=== PATIENT | female | born 1975 | race Caucasian/White ===

== ENCOUNTER 2020-10-27 03:07 | Emergency (ER) | payer MEDICAID ==
[~2020-10-27] VITALS: Ht 162.6 cm; Wt 63.5 kg
--- NOTE | 2020-10-27 03:20 | NUR ---
Patient arrived to the ER via her boyfriends car. Patient is complaining of a large raised, reddened area on the lower right hazel. Patient stated that this started about 3 days ago and only recently got worse to the point of being extremely painful. The area in question is a large raised bump in the medial hazel surrounded by a reddened area that is not raised. The skin on the raised bump is shiny, and does not show any wounds consistent with an incect bite or sting. Patient has a shuffling gait josey to the pain caused by walking. No other complaints made known. No SOB or signs of respiratory distress. VS stable.
[2020-10-27] MEDS ORDERED: CEFAZOLIN 1 G in IV DEXTROSE 5% 50 ML IV ONE (03:30)
[2020-10-27] MEDS ORDERED: AZITHROMYCIN 250 MG TABLET PO ONE (03:30)
[2020-10-27] MEDS ORDERED: OXYCODONE/APAP 5-325 MG TABLET PO ONE (03:30)
--- NOTE | 2020-10-27 03:30 | NUR ---
Dr. Guevara in room to assess the patient.
[2020-10-27 03:54] LABS: BASOPHILS # (AUTO) 0.1 K/uL (0.0-8.0); BASOPHILS % (AUTO) 0.6 % (0.0-2.0); EOSINOPHILS # (AUTO) 0.1 K/uL (0.0-0.7); EOSINOPHILS % (AUTO) 0.9 % (0.0-7.0); HEMATOCRIT 40.5 % (31.2-41.9); HEMOGLOBIN 13.3 g/dL (10.9-14.3); LYMPHOCYTES # (AUTO) 2.9 K/uL (20.0-40.0); LYMPHOCYTES % (AUTO) 22.6 % (20.5-51.5); MEAN CORPUSCULAR HEMOGLOBIN 27.6 uug (24.7-32.8); MEAN CORPUSCULAR HGB CONC 33 g/dL (32.3-35.6); MEAN CORPUSCULAR VOLUME 83.9 fL (75.5-95.3); MONOCYTES % (AUTO) 8.1 % (0.0-11.0); NEUTROPHILS # (AUTO) 8.8 K/uL (1.8-8.9); NEUTROPHILS % (AUTO) 67.8 % (38.5-71.5); PLATELET COUNT (AUTO) 362 K/uL (179-408); RED BLOOD CELL COUNT(AUTO) 4.83 MIL/uL (3.63-4.92); WHITE BLOOD COUNT (AUTO) 12.9 K/uL (3.8-11.8)
[2020-10-27] MEDS ORDERED: OXYCODONE/APAP 5-325 MG TABLET ONE (04:01)
[2020-10-27] MEDS ORDERED: AZITHROMYCIN 250 MG TABLET ONE (04:01)
[2020-10-27] MEDS ORDERED: CEFAZOLIN 1 G VIAL ONE (04:01)
[2020-10-27 04:02] LABS: CREATININE 0.8 mg/dL (0.6-1.3); POTASSIUM 4.4 mmol/L (3.5-5.1)
[2020-10-27 04:08] LABS: BILIRUBIN,DIRECT 0.1 mg/dL (0.0-0.2); BILIRUBIN,TOTAL 0.2 mg/dL (0.2-1.0)
[2020-10-27] MEDS ORDERED: AZIT250T13 PO (04:18)
[2020-10-27] MEDS ORDERED: OXYC-128 PO (04:18)
[2020-10-27] MEDS ORDERED: PENI500T PO (04:18)
[2020-10-27 04:58] VITALS: BP 155/102
--- NOTE | 2020-10-27 05:00 | NUR ---
Patient discharged to home in stable condition. Written and verbal after care instructions given. Patient verbalizes understanding of instructions. Patient instructed not to drive due to narcotic pain medication received. Patient is going home with her boyfriend. Stressed follow up or return to ER for worsening s/s. No SOB or signs of distress upon discharge.
== END 2020-10-27 05:09 | disposition home or self-care (01) ==
LOC: ER 03:16
DX: L03.115 Cellulitis of right lower limb (principal); R03.0 Elevated blood-pressure reading, without diagnosis of hypertension; R00.0 Tachycardia, unspecified; D72.829 Elevated white blood cell count, unspecified
CPT/HCPCS: 36415; 80048; 80076; 85025; 96365; 99284; J0690; J7060; A4663; J7050; Q0144

== ENCOUNTER 2021-06-28 02:03 | Inpatient (IN) | payer MEDICAID ==
[~2021-06-28] VITALS: Ht 152.4 cm; Wt 64.0 kg
[~2021-06-28 02:03] MED LIST: AZIT250T13 PO; OXYC-128 PO; PENI500T PO
[2021-06-28] MEDS ORDERED: IV NORMAL SALINE 1000 ML BAG IV ONE (02:30)
[2021-06-28] MEDS ORDERED: ONDANSETRON 4 MG/2 ML VIAL IV ONE ×2 (02:30→15:26)
[2021-06-28] MEDS ORDERED: HYDROMORPHONE 1 MG/1 ML DISP.SYRIN IV ONE (02:30)
[2021-06-28] MEDS ORDERED: PIPERACILLIN SODIUM/TAZOBACTAM 3.375 G in IV DEXTROSE 5% 50 ML IV ONE (02:30)
[2021-06-28 02:47] LABS: HEMATOCRIT 41.3 % (31.2-41.9); MEAN CORPUSCULAR HEMOGLOBIN 27.4 uug (24.7-32.8); MEAN CORPUSCULAR VOLUME 82.2 fL (75.5-95.3); PLATELET COUNT (AUTO) 353 K/uL (179-408)
[2021-06-28 02:53] LABS: CREATININE 0.7 mg/dL (0.6-1.3); POTASSIUM 3.7 mmol/L (3.5-5.1)
[2021-06-28 03:01] LABS: BILIRUBIN,DIRECT 0.2 mg/dL (0.0-0.2); BILIRUBIN,TOTAL 0.5 mg/dL (0.2-1.0); TOTAL PROTEIN, SERUM 7.5 g/dL (6.4-8.2)
[2021-06-28] MEDS ORDERED: HYDROMORPHONE 1 MG/1 ML DISP.SYRIN ONE (03:07)
[2021-06-28] MEDS ORDERED: ONDANSETRON 4 MG/2 ML VIAL ONE ×2 (03:07→08:41)
[2021-06-28] MEDS ORDERED: PIPERACILLIN/TAZOBACTAM/D5W 50 ML IV ONE ×2 (03:10→06:02)
[2021-06-28] MEDS ORDERED: SWABABLE VALVE TRANSFER SET EA MC ONE (03:22)
[2021-06-28] MEDS ORDERED: IOHEXOL 300MG/ML 100 ML INFUS..BTL ONE (03:23)
[2021-06-28] MEDS ORDERED: IV NORMAL SALINE 250 ML IV ONE (03:23)
[2021-06-28 03:30] LABS: *BILIRUBIN,URIN NEGATIVE (NEGATIVE); *BLOOD, URINE 3+ (NEGATIVE); *CLARITY,URINE CLEAR (CLEAR); *COLOR,URINE YELLOW (YELLOW); *KETONES,URINE NEGATIVE (NEGATIVE); *UROBILINOGEN,URINE 0.2 E.U./dl (NORMAL); LEUKOCYTE ESTERASE ,URINE NEGATIVE (NEGATIVE); NITRITE, URINE NEGATIVE (NEGATIVE); PH,URINE 5.5 (5.0-8.0); UGLUCOSE NEGATIVE (NEGATIVE)
[2021-06-28 03:43] LABS: *URINE HCG, QUAL NEGATIVE (NEGATIVE); BACTERIA,URINE FEW /HPF (NONE SEEN); SQUAMOUS EPITHELIAL CELL,UR MODERATE /HPF (NONE SEEN); WBC,URINE 0-3 /HPF (0-3)
[2021-06-28] MEDS ORDERED: HYDROCODONE/APAP 5-325MG TABLET PO PRN (05:45)
[2021-06-28] MEDS ORDERED: ACETAMINOPHEN 325 MG TABLET PO PRN (05:45)
[2021-06-28] MEDS ORDERED: MAGNESIUM HYDROXIDE 30 ML LIQUID UDC PO PRN (05:45)
[2021-06-28] MEDS ORDERED: REMEDY ESSENTIAL ZINC PASTE 113 GM TP PRN (05:45)
[2021-06-28] MEDS ORDERED: ONDANSETRON 4 MG/2 ML VIAL IV PRN ×2 (05:45→14:30)
[2021-06-28] MEDS: IV D5 1/2 NS 1000 ML 1,000 ML IV PRN ×2 (05:55→09:04)
[2021-06-28] MEDS ORDERED: PIPERACILLIN SODIUM/TAZOBACTAM 3.375 G in IV DEXTROSE 5% 50 ML IV SCH (06:00)
[2021-06-28] MEDS ORDERED: MORPHINE SULFATE 4 MG/1 ML DISP.SYRIN ONE (08:41)
[2021-06-28] MEDS ORDERED: PANTOPRAZOLE SODIUM 40 MG VIAL ONE (08:59)
[2021-06-28] MEDS: PANTOPRAZOLE SODIUM 40 MG VIAL IV SCH (09:04)
[2021-06-28] MEDS: MORPHINE SULFATE 4 MG/1 ML DISP.SYRIN IV PRN ×2 (09:05→20:06)
[2021-06-28 11:25] VITALS: BP 114/67
[2021-06-28] MEDS ORDERED: BUPIVACAINE/EPI PF 0.25% 30 ML VIAL ONE (12:55)
[2021-06-28] MEDS ORDERED: LIDOCAINE HCL 2% 20 ML VIAL ONE (12:56)
[2021-06-28] MEDS ORDERED: ROCURONIUM BROMIDE 50 MG/5 ML VIAL ONE (13:41)
[2021-06-28] MEDS ORDERED: FENTANYL CITRATE 100 MCG/2 ML AMPUL ONE (13:41)
[2021-06-28] MEDS: PIPERACILLIN SODIUM/TAZOBACTAM 3.375 G in IV DEXTROSE 5% 100 ML IV SCH ×2 (14:00→21:25)
[2021-06-28] MEDS ORDERED: CEFAZOLIN 1 G VIAL IM ONE (15:26)
[2021-06-28] MEDS ORDERED: GLYCOPYRROLATE 0.2 MG/ML VIAL IJ ONE (15:26)
[2021-06-28] MEDS ORDERED: LIDOCAINE-MPF 2% 5 ML VIAL IJ ONE (15:26)
[2021-06-28] MEDS ORDERED: SUCCINYLCHOLINE CHLORIDE 200 MG/10 ML VIAL IV ONE (15:26)
[2021-06-28] MEDS ORDERED: PROPOFOL 200 MG/20 ML BOTTLE IV ONE (15:26)
[2021-06-28] MEDS ORDERED: NEOSTIGMINE METHYLSULFATE 10 MG/10 ML VIAL IM ONE (15:26)
[2021-06-28] MEDS ORDERED: DEXAMETHASONE SOD PHOSPHATE 4 MG INJ IV ONE (15:26)
[2021-06-28] MEDS ORDERED: KETOROLAC TROMETHAMINE 30 MG INJ IM ONE (15:26)
[2021-06-28 16:42] VITALS: BP 125/74
[2021-06-28 16:58] VITALS: BP 125/77
[2021-06-28 17:16] VITALS: BP 124/85
[2021-06-28 17:59] VITALS: BP 124/80
[2021-06-28 21:34] VITALS: BP 127/80
[2021-06-29] MEDS: MORPHINE SULFATE 4 MG/1 ML DISP.SYRIN IV PRN ×3 (00:52→11:12)
[2021-06-29 04:10] VITALS: BP 114/76
[2021-06-29] MEDS: PIPERACILLIN SODIUM/TAZOBACTAM 3.375 G in IV DEXTROSE 5% 100 ML IV SCH ×2 (05:10→14:22)
[2021-06-29 07:17] LABS: HEMATOCRIT 39.9 % (31.2-41.9); MEAN CORPUSCULAR HEMOGLOBIN 27.5 uug (24.7-32.8); MEAN CORPUSCULAR VOLUME 84.1 fL (75.5-95.3); PLATELET COUNT (AUTO) 356 K/uL (179-408)
[2021-06-29 07:37] LABS: CREATININE 0.6 mg/dL (0.6-1.3); MAGNESIUM 2.5 mg/dL (1.8-2.4); PHOSPHOROUS 3.5 mg/dL (2.5-4.9); POTASSIUM 4.5 mmol/L (3.5-5.1)
[2021-06-29] MEDS: PANTOPRAZOLE SODIUM 40 MG VIAL IV SCH (08:32)
[2021-06-29 11:50] VITALS: BP 141/96
[2021-06-29] MEDS: IV D5 1/2 NS 1000 ML 1,000 ML IV PRN (14:39)
[2021-06-29 16:02] VITALS: BP 131/83
[2021-06-29] MEDS ORDERED: PANT40TA49 PO (16:37)
[2021-06-29] MEDS ORDERED: AMOX-427 PO (16:37)
[2021-06-29] MEDS ORDERED: ACET325T53 PO (16:37)
[2021-06-30] MEDS ORDERED: PANTOPRAZOLE SODIUM 40 MG TABLET.DR PO SCH (07:00)
== END 2021-06-29 19:01 | disposition home or self-care (01) | DRG 234 ==
LOC: ER 02:05 → MEDSURG3 10:06
PROVIDERS: ADMIT Nurse Practitioner Acute Care; ATTEND Nurse Practitioner Acute Care
PROC: 0DTJ4ZZ Resection of Appendix, Percutaneous Endoscopic Approach (ICD-10-PCS; principal; 2021-06-28)
DX: K35.80 Unspecified acute appendicitis (principal); E87.1 Hypo-osmolality and hyponatremia; F17.210 Nicotine dependence, cigarettes, uncomplicated; F19.90 Other psychoactive substance use, unspecified, uncomplicated; K22.9 Disease of esophagus, unspecified; D72.829 Elevated white blood cell count, unspecified
CPT/HCPCS: 10021; 36415; 71045; 83735; 84100; 84703; 85025; 85610; 88173-TC; 93005; A4217; C9113; G0378; J0330; J0690; J1100; J1170; J1885; J2270; J2405; J2543; J3010; J3490; J7030; J7050; J7060; J7120; Q9967